=== PATIENT | female | born 1950 | race Caucasian/White ===

== ENCOUNTER → 2019-10-08 09:33 | Outpatient (CLI) | payer OTHER, SELFPAY ==
--- NOTE | ~2019-10-08 | XR_ITS ---
XR chest 2V DATE: 10/08/2019 10:54 INDICATION: Shortness of breath TECHNIQUE: PA and lateral views COMPARISON: 01/22/2008 portable AP chest FINDINGS: Normal heart size. No hilar or mediastinal enlargement. No pulmonary infiltrate or consol idation, pulmonary vascular congestion or pleural effusion. There is old pulmonary granulomatous dis ease. Diffuse idiopathic skeletal hyperostosis. IMPRESSION: No active cardiopulmonary disease Reviewed, dictated and finalized at location B. TION SAFETY INSPECTOR
--- NOTE | ~2019-10-08 | US_ITS ---
EXAMINATION: US right upper quadrant EXAM DATE: 10/08/2019 10:53 INDICATION: Upper abdominal intermittent pain. TECHNIQUE: Multiple grayscale and Doppler images of the abdomen right upper quadrant were obtained (b y a technologist who performed the scan) and subsequently reviewed. Comparison is made to prior exami nation from 05/24/2009. FINDINGS: The pancreatic head and body are normal in appearance. The pancreatic tail is not visualized. There is echogenic liver parenchyma, hepatic steatosis. There are no focal liver lesions identified. Th ere is no evidence of intrahepatic biliary duct dilation. Portal venous flow was seen in the hepatop edal, normal direction and has normal Doppler waveform. No right-sided hydronephrosis. Common bile duct measures 3 mm, which is normal. The gallbladder wall is normal in thickness, with ex pected amount of distention. No sonographic evidence of pericholecystic fluid. There is no cholelit hiases. Technologist performing exam reports patient did not demonstrate sonographic Porter's sign. Please note that this sign is less reliable in patients who have received pain medication. IMPRESSION: 1. Hepatic steatosis. Reviewed, dictated and finalized at location A. LOADER IMPRESSION: 1. Hepatic steatosis.
== END ==
PROVIDERS: Visit Provider Physician Assistant Medical
DX: R10.9 Unspecified abdominal pain (principal); R06.02 Shortness of breath; K76.0 Fatty (change of) liver, not elsewhere classified
CPT/HCPCS: 71046; 76705

== ENCOUNTER → 2019-10-08 09:40 | Outpatient (CLI) | payer OTHER, SELFPAY ==
--- NOTE | ~2019-10-08 | US_ITS ---
US retroperitoneal comp 10/08/2019 10:53 Procedure: Realtime transabdominal ultrasound of the kidneys and bladder. Indication: Renal cysts Comparison: MRI dated 03/30/2019 Findings: Renal echotexture is normal bilaterally without hydronephrosis or renal stone. There are bi lateral renal cysts. Largest right renal cyst measures 8.6 cm maximum dimension. Largest left renal c yst measures 8.2 cm maximum dimension. The right kidney measures 12.6 cm and left kidney measures 12. 4 cm. Bladder within normal limits. Impression: 1: Bilateral renal cysts. Reviewed, dictated and finalized at location A. SERVICE COORDINATOR Impression: 1: Bilateral renal cysts.
== END ==
PROVIDERS: Visit Provider Urology
DX: N28.1 Cyst of kidney, acquired (principal)
CPT/HCPCS: 76770

== ENCOUNTER 2020-05-11 10:37 | Outpatient (CLI) | payer OTHER, SELFPAY ==
--- NOTE | ~2020-05-11 | MM_ITS ---
EXAMINATION: MM screening aidan BI w bryn HISTORY: Screening mammogram TECHNIQUE: Craniocaudal and mediolateral oblique 3-D tomosynthesis images were obtained and synthetic 2-D images were generated. CAD analysis was submitted and interpreted. COMPARISON: 02/26/2015 bilateral digital screening mammogram BREAST PARENCHYMAL COMPOSITION: The breasts are almost entirely fatty. FINDINGS: There is no evidence of suspicious mass, calcification, or architectural distortion to sugg est malignancy in either breast. There has been no suspicious interval change. IMPRESSION: 1. No mammographic evidence of malignancy. 2. Recommend routine screening mammography in one year. BI-RADS Category 1: Negative Reviewed, dictated and finalized at location D.
== END 2020-05-11 10:38 | disposition home or self-care (01) ==
PROVIDERS: PCP Internal Medicine; Visit Provider Physician Assistant Medical
DX: Z12.31 Encounter for screening mammogram for malignant neoplasm of breast (principal)
CPT/HCPCS: 77063; 77067

== ENCOUNTER 2020-08-03 10:37 | Outpatient (CLI) | payer OTHER, SELFPAY ==
--- NOTE | ~2020-08-03 | CT_ITS ---
EXAMINATION: CTA brain carotid DATE: 08/03/2020 11:40 INDICATION: Syncope. Left-sided headache. TECHNIQUE: Computed tomographic angiography (CTA) of the head was performed without and with 100 mL O mnipaque-350 intravenous contrast. CTA of the neck was performed with intravenous contrast. Automated exposure control and iterative reconstruction technique were employed. The dose-length product was 1 642.04 mGy-cm. Maximum intensity projection and volume rendered 3D-reconstructions were created by stephanie worthy technologist on a separate workstation. COMPARISON: None. FINDINGS: HEAD CTA: There is prominent cerebrospinal fluid anterior to the frontal lobes, likely subdural hygro mas or chronic hematomas. There is no intracranial hemorrhage, acute infarction, or abnormal intracra nial mass lesion. The ventricles are normal in size. The paranasal sinuses are clear. The mastoid air cells are normal. The orbits are normal. The vertebral arteries are codominant. There is no signific ant stenosis of basilar artery or the posterior cerebral arteries. Left posterior communicating arter y is normal. A right posterior communicating artery is not identified. There is no significant stenos is of the intracranial internal carotid arteries or anterior or middle cerebral arteries. Anterior co mmunicating artery is normal. There is no aneurysm. NECK CTA: There are nodules in the thyroid measuring up to 8 mm, likely not clinically significant. T here are no pathologically enlarged lymph nodes. There is no significant stenosis of the vertebral ar teries. There is minimal plaque in the proximal internal carotid arteries. There is 0% stenosis of th e proximal right internal carotid artery relative to normal distal artery lumen diameter (NASCET crit eria). There is 0% stenosis of the proximal left internal carotid artery relative to normal distal ar tamara lumen diameter. There is severe cervical spondylosis. There are changes of anterior fusion proce dure at C6-C7. IMPRESSION: 1. Small subdural hygromas versus chronic subdural hematomas anterior to the frontal lobes. 2. No aneurysm or significant intracranial arterial stenosis. 3. 0% stenosis of the proximal internal carotid arteries relative to normal distal artery lumen diame ters (NASCET criteria). Reviewed, dictated and finalized at location A. DIE PRESS FEEDER IMPRESSION: 1. Small subdural hygromas versus chronic subdural hematomas anterior to the fr ontal lobes. 2. No aneurysm or significant intracranial arterial stenosis. 3. 0% stenosis of the proximal internal carotid arteries relative to normal dis umberto artery lumen diameters (NASCET criteria).
[2020-08-03 11:25] LABS: Estimated Glomerular Filt Rate > 60
== END 2020-08-03 10:38 | disposition home or self-care (01) ==
PROVIDERS: PCP Internal Medicine; Visit Provider Psychiatry & Neurology Neurology
DX: R42 Dizziness and giddiness (principal)
CPT/HCPCS: 70496; 70498; Q9967

== ENCOUNTER → 2021-05-25 10:21 | Outpatient (CLI) | payer OTHER, SELFPAY ==
--- NOTE | ~2021-05-25 | US_ITS ---
EXAMINATION: US retroperitoneal comp EXAM DATE: 05/25/2021 11:22 INDICATION: Cyst of kidney, acquired . TECHNIQUE: Multiple grayscale and Doppler images of the kidneys were obtained (by a technologist who performed the scan) and subsequently reviewed. Comparison is made to prior examination from 10/08/2019 . FINDINGS: Right kidney: There is normal contour and echogenicity. It measures 13.1 x 5.6 x 6.6 centimeters. Re nal lesion consistent with cysts measuring up to 5 cm. There is no hydronephrosis. Left kidney: There is normal contour and echogenicity. It measures 13.1 x 5.3 x 3.9 centimeters. Lev al lesion consistent with cysts measuring 7 cm. There is no hydronephrosis. Bladder unremarkable. IMPRESSION: Renal cysts unchanged. Reviewed, dictated and finalized at location G. IMPRESSION: Renal cysts unchanged.
== END ==
PROVIDERS: PCP Internal Medicine; Visit Provider Urology
DX: N28.1 Cyst of kidney, acquired (principal)
CPT/HCPCS: 76770

== ENCOUNTER 2023-02-05 01:09 | Day surgery (SDC) | payer MEDICARE, SELFPAY ==
[2023-01-25 14:25] VITALS: BMI 40.2
[2023-02-05 09:29] VITALS: BP 148/88; PULSE 98; RESP 20; TEMP 36; O2SAT 99; BMI 38.0
[2023-02-05] MEDS: LACTATED RINGERS 1,000 ML 150 ML IV CONT (09:35)
--- NOTE | 2023-02-05 09:55 | WPDANESEPPF ---
Anes - Initial Pre Proc Eval Procedure: Operation Date: 02/05/23 10:30 Proposed Procedures p Esophagogastroduodenoscopy & Colonoscopy - Modesto Venegas MD Date/Time: 02/05/23 09:55 Surgeon: Modesto Venegas MD Pre Op Diagnosis: NEHAL,hx of colon polyps, neoplasm screening Patient Data Age: 72 Gender: F Height: 1.6 m Weight: 97.5 kg Last Vital Signs Temp 96.8 F L 02/05/23 09:29 Pulse 98 02/05/23 09:29 Resp 20 02/05/23 09:29 BP 148/88 H 02/05/23 09:29 Pulse Ox 99 02/05/23 09:29 O2 Del Method Room Air 02/05/23 09:29 Allergies Allergy/AdvReac Type Severity Reaction Status Date / Time egg Allergy Intermediate Diarrhea Verified 02/05/23 09:27 adhesive Allergy Mild Redness of Verified 02/05/23 09:27 Skin latex Allergy Mild Difficulty Verified 02/05/23 09:27 Breathing Penicillins Allergy Mild Anaphylaxis Verified 02/05/23 09:27 Quinolones Allergy Mild Unknown Verified 02/05/23 09:27 levofloxacin Allergy Unknown myalgia Verified 02/05/23 09:27 nickel Allergy Unknown Rash Verified 02/05/23 09:27 venlafaxine [From Effexor] AdvReac Intermediate Loss of Verified 02/05/23 09:27 Toenails Molds and Smuts Allergy Mild Unknown Uncoded 02/05/23 09:27 Blood Builder AdvReac GI upset Uncoded 02/05/23 09:27 hemp AdvReac Vomiting Uncoded 02/05/23 09:27 injectable steriods AdvReac Shakiness Uncoded 02/05/23 09:27 Home Medications Medication Instructions Recorded Confirmed Type cholecalciferol (vitamin D3) 125 125 mcg PO DAILY 09/13/22 02/05/23 History mcg (5,000 unit) capsule Diovan HCT 160 mg-25 mg tablet 1 tablet PO DAILY #30 tabs 10/10/22 02/05/23 Rx (valsartan-hydrochlorothiazide) omeprazole 20 mg-sodium 1 cap PO BID 1 month #60 caps 12/06/22 02/05/23 Rx bicarbonate 1.1 gram capsule albuterol sulfate 90 mcg/actuation 1 inh inhalation Q4H PRN shortness 12/18/22 02/05/23 Rx aerosol inhaler of breath or wheezing #8.5 grams beclomethasone dipropionate 80 1 inh inhalation Q12H #10.6 grams 12/18/22 02/05/23 Rx mcg/actuation HFA breath activated aerosol (Qvar RediHaler) alprazolam 0.5 mg tablet 0.5 mg PO BID PRN anxiety #60 tabs 01/09/23 01/28/23 Rx folic acid 1 mg tablet See Rx Instructions .Route 01/10/23 02/05/23 Rx .COMPLEX #90 tabs hydrocodone 5 mg-acetaminophen 325 1 tablet PO Q8H PRN pain #84 tabs 01/11/23 01/28/23 Rx mg tablet Lactobacillus rhamnosus-Bifidobac. 1 cap PO DAILY 01/16/23 02/05/23 History animalis 3 billion cell capsule (Savioke) Patient hx anesthesia problems: none Family hx anesthesia problems: none Results Review: All pre-operative results and documents have been reviewed as part of the pre-operative evaluation. [facility] Past Medical History Medical History (Updated 12/06/22 @ 15:26 by Olga Lidia Flower APN-[place]) Abdominal pain Allergies Antalgic gait Anxiety Asthma Constipation Diabetes Dyslipidemia Fibromyalgia Folate deficiency Gastroparesis Hypertension Hyponatremia IBS (irritable bowel syndrome) Inflammatory arthritis Iron deficiency anemia Lower extremity weakness Obese Postprandial bloating Vitamin D deficiency Family History Family History Father Diabetes mellitus, Onset Age: 83 Family history of cardiovascular disease, Onset Age: 83 Family history of kidney disease, Onset Age: 83 Mother Patient's mother is , Onset Age: 71 Sibling Patient's brother is , Onset Age: 17 Carcinoma of colon Family history of malignant neoplasm of thyroid Father Diabetes mellitus Family history of kidney stones Family history of diabetes mellitus in first degree relative Family history of heart disease in male family member before age 55 Mother Diabetes mellitus Depression Hypertension Family history of heart disease in male family member before age 55 Sibling Depression Hyperte
--- NOTE | 2023-02-05 09:55 | PM.HPGS ---
History of Present Illness History of Present Illness Consent: Risks, benefits, and alternatives have been discussed and questions answered. Patient agrees to proceed with procedure. Chief complaint: NEHAL,hx of colon polyps, neoplasm screening Narrative: Erinn Rodriguez is a 72 year old female with anemia, bloating and gastroparesis (chronic nausea) here for egd and colonoscopy- last one 2017 (also brother had colon cancer) Review of Systems Constitutional: Constitutional: Denies headache(s) and Denies weakness Eyes: Eyes: Denies blurry vision ENT: Reports Normal hearing present, Denies headache(s) and Denies neck pain Cardiovascular: Cardiovascular: Denies chest pain and Denies dyspnea Respiratory: Respiratory: Denies dyspnea Gastrointestinal: Gastrointestinal: Reports no additional gastrointestinal complaints Genitourinary: Genitourinary: Denies dysuria Musculoskeletal: Musculoskeletal: Denies neck pain Integumentary/Breasts: Skin/Breast: Denies dry skin Neurologic: Reports Normal hearing present, Denies headache(s) and Denies weakness Psychiatric: Psychiatric: Denies anxiety Endocrine: Endocrine: Denies change in body appearance Hematologic/Lymphatic: Hematologic/Lymphatic: Denies easy bleeding Allergic/Immunologic: Allergic/Immunologic: Denies urticaria PMFSH Past Medical History Medical History (Updated 02/05/23 @ 09:57 by Modesto Venegas MD) Abdominal pain Allergies Antalgic gait Anxiety Asthma Constipation Diabetes Dyslipidemia Family history of colon cancer Fibromyalgia Folate deficiency Gastroparesis Hypertension Hyponatremia IBS (irritable bowel syndrome) Inflammatory arthritis Iron deficiency anemia Lower extremity weakness Obese Postprandial bloating Vitamin D deficiency Family History Family History Father Diabetes mellitus, Onset Age: 83 Family history of cardiovascular disease, Onset Age: 83 Family history of kidney disease, Onset Age: 83 Mother Patient's mother is , Onset Age: 71 Sibling Patient's brother is , Onset Age: 17 Carcinoma of colon Family history of malignant neoplasm of thyroid Father Diabetes mellitus Family history of kidney stones Family history of diabetes mellitus in first degree relative Family history of heart disease in male family member before age 55 Mother Diabetes mellitus Depression Hypertension Family history of heart disease in male family member before age 55 Sibling Depression Hypertension Carcinoma of colon Family history of gastrointestinal disorder Family history of irritable bowel syndrome Family history of malignant neoplasm of thyroid Other Cerebrovascular accident Family history of allergic disorder Social History Social History Smoking packs per day: 0.5 Smoking cigarettes per day: 10.0 Years smoked: 20 Smoking pack-years: 10.00 Smoking status: Former smoker Tobacco type: cigarettes Alcohol intake: never Substance use: never Substance use type: does not use Living arrangements: other Occupation/Education: retired Gender identity (if verbalized by the patient): Female Spiritual care concerns: No Meds Home Medications and Allergies Home Medications Medication Instructions Recorded Confirmed Type cholecalciferol (vitamin D3) 125 125 mcg PO DAILY 09/13/22 02/05/23 History mcg (5,000 unit) capsule Diovan HCT 160 mg-25 mg tablet 1 tablet PO DAILY #30 tabs 10/10/22 02/05/23 Rx (valsartan-hydrochlorothiazide) omeprazole 20 mg-sodium 1 cap PO BID 1 month #60 caps 12/06/22 02/05/23 Rx bicarbonate 1.1 gram capsule albuterol sulfate 90 mcg/actuation 1 inh inhalation Q4H PRN shortness 12/18/22 02/05/23 Rx aerosol inhaler of breath or wheezing #8.5 grams beclomethasone dipropionate 80 1 inh inhalation Q12H
[2023-02-05] MEDS: BENZOCAINE (*SP) 60 ML SPRAY CAN (HURRICAINE) 1 SPRAY MUCOUS MEM (10:07)
--- NOTE | 2023-02-05 10:09 | SUR.OPER ---
EGD end 1005 COLONOSCOPY START 1010
[2023-02-05 10:26] VITALS: BP 103/54; PULSE 87; RESP 22; O2SAT 98
[2023-02-05 10:36] VITALS: BP 103/62; PULSE 84; RESP 20; O2SAT 97
[2023-02-05 10:46] VITALS: BP 114/86; PULSE 78; RESP 20; O2SAT 98
== END 2023-02-05 11:06 | disposition home or self-care (01) ==
PROVIDERS: PCP Family Medicine; Visit Provider Internal Medicine Gastroenterology
PROC: 0DJ08ZZ Inspection of Upper Intestinal Tract, Via Natural or Artificial Opening Endoscopic (ICD-10-PCS; CPT 43235; principal; 2023-02-05 10:30)
DX: Z12.11 Encounter for screening for malignant neoplasm of colon (principal); D50.9 Iron deficiency anemia, unspecified; K57.30 Diverticulosis of large intestine without perforation or abscess without bleeding; D12.4 Benign neoplasm of descending colon; K64.8 Other hemorrhoids; Z80.0 Family history of malignant neoplasm of digestive organs; E11.43 Type 2 diabetes mellitus with diabetic autonomic (poly)neuropathy; K31.84 Gastroparesis; I10 Essential (primary) hypertension; E78.5 Hyperlipidemia, unspecified; J45.909 Unspecified asthma, uncomplicated; M79.7 Fibromyalgia; E55.9 Vitamin D deficiency, unspecified; E53.8 Deficiency of other specified B group vitamins; F41.9 Anxiety disorder, unspecified; Z79.51 Long term (current) use of inhaled steroids; Z87.891 Personal history of nicotine dependence; E66.9 Obesity, unspecified; Z68.38 Body mass index [BMI] 38.0-38.9, adult
CPT/HCPCS: 45385; 43239; 88305; J2704; J7120

== ENCOUNTER 2023-10-08 13:23 | Outpatient (CLI) | payer MEDICARE, SELFPAY ==
--- NOTE | ~2023-10-08 | MR_ITS ---
EXAMINATION: MR lumbar spine wo con DATE: 10/08/2023 14:25 INDICATION: Mid to low back pain. Leg weakness. TECHNIQUE: Magnetic resonance imaging (MRI) of the lumbar spine was performed without intravenous con trast. Sequences included sagittal T2-weighted FSE, sagittal T2-weighted FS FSE, sagittal T1-weighted FSE, and axial T2-weighted FSE. COMPARISON: Lumbar spine MRI 03/12/2019 FINDINGS: There are cysts in the kidneys measuring up to 7.9 cm on the left. There is 3 mm retrolisth esis of T12 on L1 and 4 mm anterolisthesis of L4 on L5. There is mild chronic anterior wedging of T12 -L1 vertebral bodies. There is moderately decreased disc height at T12-L1, mildly decreased disc heig ht at L1-L2, moderately decreased disc height at L2-L3, severely decreased disc height at L3-L4, and mildly decreased disc height at L4-L5. There is a hemangioma in L5 vertebral body. The distal spinal cord signal intensity is normal. The conus medullaris is at T12. The following disc levels are specif ically discussed: T12-L1: The disc is bulging and has an annular fissure. There is mild bilateral facet joint osteoarth ritis. There is mild bilateral neural foraminal stenosis. There is mild central canal stenosis. L1-L2: The disc is bulging. There is mild bilateral facet joint osteoarthritis. There is mild bilater al neural foraminal stenosis. There is mild central canal stenosis. L2-L3: The disc is bulging. There is mild right and moderate left facet joint osteoarthritis. There i s mild bilateral neural foraminal stenosis. There is mild central canal stenosis. L3-L4: The disc is bulging and has an annular fissure. There is severe bilateral facet joint osteoart hritis. There is mild bilateral neural foraminal stenosis. There is mild central canal stenosis. L4-L5: The disc is bulging and has an annular fissure. There is severe bilateral facet joint osteoart hritis. There is moderate right and mild left neural foraminal stenosis. There is mild central canal stenosis. L5-S1: There is a left central protrusion with annular fissure. There is severe bilateral facet joint osteoarthritis. There is mild right neural foraminal stenosis. There is mild central canal stenosis. IMPRESSION: 1. Severe lumbar spondylosis, stable from 03/12/2019. Reviewed, dictated and finalized at location E. T MANAGER
--- NOTE | ~2023-10-08 | MR_ITS ---
EXAMINATION: MR cervical spine wo con DATE: 10/08/2023 14:18 INDICATION: Neck pain. TECHNIQUE: Magnetic resonance imaging (MRI) of the cervical spine was performed without intravenous c ontrast. COMPARISON: None FINDINGS: There is 4 degrees levocurvature of cervical spine. Vertebral body heights are normal. Ther e is interbody fusion at C6-C7 with focal kyphosis. There is severely decreased disc height at C5-C6. The spinal cord signal intensity is normal. The following disc levels are specifically discussed: C2-C3: The disc does not extend beyond the endplate margin. There is no uncovertebral joint osteoarth ritis. There is moderate right and mild left facet joint osteoarthritis. There is mild right neural f oraminal stenosis. There is no central canal stenosis. C3-C4: There is a left central extrusion. There is no uncovertebral joint osteoarthritis. There is mi ld bilateral facet joint osteoarthritis. There is mild left neural foraminal stenosis. There is moder ate central canal stenosis with ventral and dorsal indentation of the spinal cord. C4-C5: There is a left central protrusion. There is mild bilateral uncovertebral joint osteoarthritis . There is severe right and mild left facet joint osteoarthritis. There is moderate right neural fora nisreen stenosis. There is moderate central canal stenosis with ventral and dorsal indentation of the s jace cord. C5-C6: There is a right central extrusion. There is severe bilateral uncovertebral joint osteoarthrit is. There is mild right facet joint osteoarthritis. There is severe bilateral neural foraminal stenos is. There is moderate central canal stenosis with ventral and dorsal indentation of the spinal cord. C6-C7: There is mild bilateral uncovertebral joint hypertrophy. There is ankylosis of the facet joint s without hypertrophy. There is no neural foraminal stenosis. There is no central canal stenosis. C7-T1: The disc is bulging. There is mild left uncovertebral joint osteoarthritis. There is severe bi lateral facet joint osteoarthritis. There is mild bilateral neural foraminal stenosis. There is no ce ntral canal stenosis. IMPRESSION: 1. Severe cervical spondylosis. 2. Anterior and posterior fusion at C6-C7. Reviewed, dictated and finalized at location E. CH OPERATIONS COORDINATOR
== END 2023-10-08 13:24 ==
PROVIDERS: PCP Physician Assistant; Visit Provider Physician Assistant
DX: M47.896 Other spondylosis, lumbar region (principal); M47.892 Other spondylosis, cervical region
CPT/HCPCS: 72141; 72148

== ENCOUNTER 2024-09-11 14:15 | Outpatient (RCR) | payer MEDICARE, SELFPAY ==
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
--- NOTE | 2024-08-05 13:13 | OPREHPOC ---
Outpatient Therapy Plan of Care This is a Multidisciplinary Plan of Care that may contain components documented by all disciplines (PT, OT, and ST.) PT Problem 1 PT Problem #1 Knowledge Deficit PT Goal 1 Goal / Goal Update Pt will be independent in HEP Pt will verbalize understanding of diagnosis and prognosis Target Visit 5 PT Problem 2 PT Problem #2 Impaired Balance PT Goal 1 Goal / Goal Update Pt will demonstrate tandem stance with eyes open on firm surface x 15 seconds without GEOLOGICAL TECHNICAL OFFICER Target Visit 10 PT Problem 3 PT Problem #3 Impaired Vestibular System PT Goal 1 Goal / Goal Update Pt will report decrease in symptoms by 50% since starting therapy Target Visit 5 PT Goal 2 Goal / Goal Update Pt will report decrease in symptoms by 75% since starting therapy Target Visit 10
--- NOTE | 2024-10-05 12:59 | PTOPDC ---
Assessment and note entered by Guadalupe Sheppard, PT Evaluation Information Assessment Status Discharge - Pt Not Present Diagnosis dizziness and giddiness ICD-10 Condition Codes (PT) Difficulty Walking R26.2,Abnormalities of gait and mobility R26.9,Dizziness and Giddiness R42 Other ICD-10 Condition Codes ( Abnormal posture PT) Onset June 24, 2024 Assessment PT Clinical Summary Pt attended 8 of 10 scheduled visits, overall reporting she felt better but was still having difficulty with bending over. She recently had increased knee pain which she reports she is pursuing ortho for and would like to be discharged from current POC at this time. Plan of Care PT Services Indicated No
== END 2024-10-05 13:20 | disposition home or self-care (01) ==
LOC: ANHHIPT 14:15
PROVIDERS: PCP Physician Assistant Medical; Visit Provider Physician Assistant Medical
DX: R42 Dizziness and giddiness (principal)
CPT/HCPCS: 97110; 97112; 97140; 97163